=== PATIENT | female | born 1975 | race Caucasian/White ===

== ENCOUNTER 2023-06-21 23:37 | Emergency (ER) | payer MEDICAID ==
[~2023-06-21] VITALS: Ht 172.7 cm; Wt 147.0 kg
[2023-06-21 23:49] VITALS: O2SAT 97
[2023-06-22] MEDS: ACETAMINOPHEN 325MG TABLET PO ONE (01:50)
[2023-06-22] MEDS: LORAZEPAM 1MG TABLET PO ONE (01:50)
[2023-06-22 03:27] VITALS: BP 152/90; PULSE 89; RESP 18; TEMP 97.8
== END 2023-06-22 03:31 | disposition home or self-care (01) ==
LOC: ER 23:37
DX: S00.432A Contusion of left ear, initial encounter (principal); Z90.49 Acquired absence of other specified parts of digestive tract; X58.XXXA Exposure to other specified factors, initial encounter; Y93.89 Activity, other specified; Y92.89 Other specified places as the place of occurrence of the external cause; Y99.8 Other external cause status
CPT/HCPCS: 93005; 99283; Z7610 ×2